=== PATIENT | female | born 1990 | race Caucasian/White ===

== ENCOUNTER 2017-03-25 23:45 | Emergency (ER) | payer BC, MEDICAID ==
[~2017-03-25] VITALS: Ht 167.6 cm; Wt 62.0 kg
[~2017-03-25 23:45] MED LIST: ACYC-57 PO; BUPR75TA5 PO; HYDR-3237 PO; IBUP-1222 PO; OXYC-302 PO; PREN1TAB10 PO
[2017-03-26] MEDS ORDERED: MORPHINE SULFATE 4 MG/ML, 1ML IVPush PRN
[2017-03-26] MEDS ORDERED: ONDANSETRON 2MG/ML, 2ML IVPush ONE
[2017-03-26] MEDS ORDERED: ONDANSETRON 2MG/ML, 2ML ONE
[2017-03-26] MEDS ORDERED: morphine SULFATE 10 MG/ML, 1ML ONE
[2017-03-26] MEDS ORDERED: LIDOCAINE 1%, 20ML ONE (00:56)
[2017-03-26 00:58] VITALS: BP 124/69
== END 2017-03-26 02:00 | disposition home or self-care (01) ==
LOC: ED 03-26 00:32
DX: S52.592A Other fractures of lower end of left radius, initial encounter for closed fracture (principal); S52.615A Nondisplaced fracture of left ulna styloid process, initial encounter for closed fracture; W19.XXXA Unspecified fall, initial encounter; Y93.89 Activity, other specified; Y99.8 Other external cause status; Y92.89 Other specified places as the place of occurrence of the external cause
CPT/HCPCS: 25605; 73060; 73090; 73100; 96374; 96375; 99284; J2405

== ENCOUNTER 2017-03-29 09:40 | Day surgery (SDC) | payer MEDICAID ==
[~2017-03-29] VITALS: Ht 167.6 cm; Wt 63.0 kg
[2017-03-29] MEDS ORDERED: OXYC-302 PO (10:18)
[2017-03-29] MEDS ORDERED: IBUP-1222 PO (10:18)
[2017-03-29 10:19] VITALS: BP 138/88
[2017-03-29] MEDS ORDERED: LIDOCAINE 1%, 2ML ONE (10:28)
[2017-03-29] MEDS ORDERED: LIDOCAINE 1%, 2ML SQ PRN (10:30)
[2017-03-29] MEDS ORDERED: LACTATED RINGERS 1,000 ML IV SCH (10:30)
[2017-03-29 10:49] LABS: HCG UR LOT HCG7030192
[2017-03-29 10:58] LABS: HCG UR OBC PASS
[2017-03-29] MEDS ORDERED: FENTANYL PF 100 MCG/2ML ONE (11:00)
[2017-03-29] MEDS ORDERED: MIDAZOLAM 1 MG/ML, 2ML ONE (11:00)
[2017-03-29] MEDS ORDERED: ROPIvacaine/PF 0.5%, 30 ML ONE (11:02)
[2017-03-29] MEDS ORDERED: BUPIVACAINE/PF 0.5% ONE (11:13)
[2017-03-29] MEDS ORDERED: EPINEPHRINE 1 MG/ML, 1ML ONE ×2 (11:13→11:26)
[2017-03-29] MEDS ORDERED: SCOPOLAMINE PATCH, 1MG PATCH.TD72 TD ONE ×3 (11:18→11:41)
[2017-03-29] MEDS ORDERED: CEFAZOLIN 1,000 MG ONE (11:41)
[2017-03-29] MEDS ORDERED: PROPOFOL 10 MG/ML, 20ML ONE (11:41)
[2017-03-29] MEDS ORDERED: DEXAMETHASONE 4 MG/ML, 1ML ONE ×3 (11:45→12:02)
[2017-03-29] MEDS ORDERED: ONDANSETRON 2MG/ML, 2ML ONE ×2 (12:02)
[2017-03-29] MEDS ORDERED: KETOROLAC 30 MG/1 ML ONE (12:03)
[2017-03-29] MEDS ORDERED: PROMETHAZINE 25 MG/ML, 1ML IV PRN (12:30)
[2017-03-29] MEDS ORDERED: OXYcodone 5 MG/5 ML ORAL.SOL UDC PO PRN (12:30)
[2017-03-29] MEDS ORDERED: HYDROmorphone 1 MG/ML, 1ML IV PRN (12:30)
[2017-03-29] MEDS ORDERED: ACETAMINOPHEN 325 MG TABLET PO PRN (12:30)
[2017-03-29] MEDS ORDERED: FENTANYL PF 100 MCG/2ML IV PRN (12:30)
[2017-03-29] MEDS ORDERED: MEPERIDINE/PF 25MG/0.5ML IVPush PRN (12:30)
[2017-03-29] MEDS ORDERED: ONDANSETRON 2MG/ML, 2ML IVPush PRN (12:30)
[2017-03-29] MEDS ORDERED: ACETAMINOPHEN 650 MG/20.3 ML UDC ONE (12:32)
[2017-03-29] MEDS ORDERED: OXYcodone 5 MG/5 ML ORAL.SOL UDC ONE (12:32)
== END 2017-03-29 14:15 ==
LOC: OUT 09:40
PROVIDERS: ATTEND Orthopaedic Surgery
DX: S52.572A Other intraarticular fracture of lower end of left radius, initial encounter for closed fracture (principal); X58.XXXA Exposure to other specified factors, initial encounter; Y93.89 Activity, other specified; Y92.89 Other specified places as the place of occurrence of the external cause; Y99.8 Other external cause status; Z88.1 Allergy status to other antibiotic agents; Z88.5 Allergy status to narcotic agent; Z88.8 Allergy status to other drugs, medicaments and biological substances
CPT/HCPCS: 25609; 73100; 76000; 81025; C1713; J0171; J0690; J1100; J1885; J2250; J2405; J2704; J2795; J3010; J3490; J7120

== ENCOUNTER 2020-03-21 12:15 | Emergency (ER) | payer MEDICAID ==
[~2020-03-21] VITALS: Ht 167.6 cm; Wt 79.9 kg
--- NOTE | 2020-03-21 13:19 | NUR ---
PT AMBULATORY TO ROOM FROM LOBBY
[2020-03-21] MEDS ORDERED: KETOROLAC 60 MG/2 ML ONE (13:58)
[2020-03-21] MEDS ORDERED: KETOROLAC 30 MG/1 ML IM ONE (14:00)
--- NOTE | 2020-03-21 14:09 | NUR ---
PT PLACED ON HEART MONITOR, PULSE OX, BP CUFF. PT MEDICATED PER ERP ORDER. CXR COMPLETED. CALL LIGHT WITHIN REACH.
[2020-03-21 14:43] VITALS: BP 112/61
== END 2020-03-21 14:49 | disposition home or self-care (01) ==
LOC: ED 13:17
DX: S29.011A Strain of muscle and tendon of front wall of thorax, initial encounter (principal); R07.89 Other chest pain; M54.9 Dorsalgia, unspecified; F17.200 Nicotine dependence, unspecified, uncomplicated; X58.XXXA Exposure to other specified factors, initial encounter; Y93.89 Activity, other specified; Y92.89 Other specified places as the place of occurrence of the external cause; Y99.8 Other external cause status
CPT/HCPCS: 71045; 93005; 96372; 99283; J1885